=== PATIENT | male | born 1955 ===

== ENCOUNTER 2021-12-17 14:14 | Outpatient (CLI) | payer MEDICARE, OTHER, SELFPAY ==
--- NOTE | 2021-12-17 | ECG_ITS ---
Measurements Intervals [place] Rate: 106 P: -35 [place]: 150 QRS: 253 QRSD: 186 T: 18 QT: 392 QTc: 522 Interpretive Statements SINUS TACHYCARDIA WITH OCCASIONAL PVC MARKED RIGHT AXIS DEVIATION [QRS AXIS > 100] RIGHT BUNDLE BRANCH BLOCK [120+ ms QRS DURATION, UPRIGHT V1, 40+ ms S IN I/aVL/V4/V5/V6] ABNORMAL ECG NO PREVIOUS TRACING FOR COMPARISON Electronically Signed On 12-17-2021 16:33:17 CDT by Taz Villanueva M.D.
== END 2021-12-17 14:15 | disposition home or self-care (01) ==
LOC: ANHCARD 14:20
PROVIDERS: PCP Emergency Medicine; Visit Provider Internal Medicine Cardiovascular Disease
DX: I48.91 Unspecified atrial fibrillation (principal); R94.31 Abnormal electrocardiogram [ECG] [EKG]
CPT/HCPCS: 93005

== ENCOUNTER 2022-05-27 16:30 | Outpatient (RCR) | payer MEDICARE, OTHER, SELFPAY | END 2022-05-27 19:30 | disposition home or self-care (01) | LOC: ANHCPREHAB 16:30 | PROVIDERS: PCP Emergency Medicine; Visit Provider Internal Medicine Cardiovascular Disease | DX: I34.0 Nonrheumatic mitral (valve) insufficiency (principal) | CPT/HCPCS: 93798 ==